=== PATIENT | male | born 1970 | race Two or more races ===

== ENCOUNTER 2024-05-27 14:12 | Emergency (ER) | payer MEDICAID, OTHER ==
[~2024-05-27] VITALS: Ht 147.3 cm; Wt 74.4 kg
[2024-05-27 14:21] VITALS: BP 137/93; PULSE 88; RESP 15; TEMP 97.8; O2SAT 96
--- NOTE | 2024-05-27 14:37 | ED.PDOC ---
Eye-HPI HPI Comments 54 y/o obese M, with no significant medical history, presents with c/o redness to right-conjunctiva, today. 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 Denies any trauma or foreign body to the eye. 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 He does state that he has been feeling very congested recently and has been blowing his nose frequently. Has a dry cough as well. Patient denies any vision changes, eye pain, eye discharge, or any other new or concerning symptoms. The patient does not use glasses or contacts. No other complaints at this time. Chief Complaint: Eye Problem Time Seen by MD: 14:25 Primary Care Provider: NONE Reviewed Notes: Nurses Notes, Medications, Allergies Allergies: Coded Allergies: NO KNOWN ALLERGIES (Unverified , 05/27/24) Information Source: Patient Mode of Arrival: Ambulatory Past Medical History PAST MEDICAL HISTORY: Denies Surgical History: Denies all surgeries Family History Family History: Unknown Social History Smoker: Non-Smoker Alcohol: Denies ETOH Use Drugs: Denies Drug Use Lives In: Home All Other Systems: Reviewed and Negative (Comprehensive systems review obtained and negative except for what is stated in the HPI.) Physical Exam General Appearance: No Apparent Distress, Normal HEENT: Normal ENT Inspection, Pharynx Normal, TMs Normal, Other (Right eye with mild subconjunctival hemorrhage, extraocular movements intact, pupils equal round reactive to light. OD 20/30, OS 20/25, OU 2020. Fluorescein exam without evidence of uptake, no Reshma sign. No evidence of foreign body. Eyelids everted without evidence of foreign body. ) Neck: Full Range of Motion, Non-Tender, Normal, Normal Inspection Respiratory: Chest Non-Tender, Lungs Clear, No Accessory Muscle Use, No Respiratory Distress, Normal Breath Sounds Cardiovascular: No Edema, No JVD, No Murmur, No Gallop, Normal Peripheral Pulses, Regular Rate/Rhythm Breast Exam: Deferred Gastrointestinal: No Organomegaly, Non Tender, No Pulsatile Mass, Normal Bowel Sounds, Soft Genitalia: Deferred Pelvic: Deferred Rectal: Deferred Extremities: No calf tenderness, Normal capillary refill, Normal inspection, Normal range of motion, Non-tender, No pedal edema Musculoskeletal : Apperance: Normal Neurologic: Alert, infant teacher II-XII nml as Tested, No Motor Deficits, Normal Affect, Normal Mood, No Sensory Deficits Cerebellar Function: NOT DONE Reflexes: NOT DONE Skin: Dry, Normal Color, Warm Lymphatic: No Adenopathy Was a procedure done? Was a procedure done?: No EENT DIFF Eye: Conjunctivitis, Foreign Body-Conjunctiva, Subconjunctival Hemorrhag, Other (Ruptured globe, acute angle closure glaucoma) Ear: N/A Nose: N/A Mouth: N/A Sore Throat: N/A X-Ray, Labs, Meds, VS Vital Signs Date Time Temp Pulse Resp B/P (MAP) Pulse Ox O2 Delivery O2 Flow Rate FiO2 05/27/24 14:21 97.8 88 15 137/93 (108) 96 97.8 X-Ray, Labs, Meds, VS Comment 54-year-old male here today with complaints of eye redness that started yesterday in the setting of being congested and coughing. No history of foreign body. No eye trauma. No eye pain. No vision changes. Vital signs stable, afebrile. Physical exam as above with evidence of overall normal visual acuity for the patient, no fluorescein uptake, and aside from a subconjunctival hemorrhage otherwise unremarkable exam. Patient was presentation not consistent with the acute angle closure glaucoma, corneal abrasion or ulcer, ruptured globe, endophthalmitis, conjunctivitis, central process or any other significant acute pathology. Patient was instructed on using artificial tears and avoiding things that would increase pressure to his eye. Provided strict return precautions for any signs of eye pain, vision changes, numbness, weakness, headaches, or any other concerning symptoms. Patient expressed understanding and was discharged home in stable condition ambulating with a steady gait in no distress. Time of 1ST Reevaluation: 14:55 Reevaluation 1ST: Unchanged Patient Education/Counseling: Diagnosis, Treatment Family Education/Counseling: No Family Present Departure 1 Departure Time of Disposition: 16:25 Impression: Primary Impression: Subconjunctival hemorrhage Additional Impression: Dry eyes Disposition: 01 HOME / SELF CARE / HOMELESS Condition: Stable Critical Care Note Critical Care Time?: No Stability Stability form required: No Heart Score Heart Score: Heart Score Response (Comments) Value History N/A 0 EKG N/A 0 Age N/A 0 Risk Factors N/A 0 Troponin N/A 0 Total 0 I personally scribed for LASHAE MARIE MD ([email or web address]) on 05/27/24 at 14:37. Electronically submitted by Colton Kline ([email or web address]). LASHAE MARIE MD May 27, 2024 14:37
[2024-05-27] MEDS: FLUORESCEIN SOD OPTH TEST STRIP RIGHTEYE ONE (15:10)
[2024-05-27] MEDS: TETRACAINE HCL 0.5% OPTH(EYE) SOLN 4ML RIGHTEYE ONE (15:10)
[2024-05-27] MEDS: PROPARACAINE HCL 0.5% OPTH(EYE) SOL 15ML OP ONE (15:10)
== END 2024-05-27 16:24 | disposition home or self-care (01) ==
LOC: ER 14:12
DX: H11.31 Conjunctival hemorrhage, right eye (principal)